=== PATIENT | female | born 1985 | race Hispanic/Latino ===

== ENCOUNTER 2018-06-13 23:43 | Emergency (ER) | payer OTHER ==
[~2018-06-13] VITALS: Ht 157.5 cm; Wt 57.2 kg
[~2018-06-13 23:43] MED LIST: JUNEL FE 1/20 21 TAB PO; TERBINAFINE HY250 MG PO
[2018-06-13 23:45] VITALS: BP 141/87
--- NOTE | 2018-06-13 23:51 | ED DYSPNEA/ASTHMA COMPLAINT ---
History of Present Illness General Chief Complaint: Wheezing/Asthma Stated Complaint: WHEEZING Source: patient Exam Limitations: no limitations Vital Signs & Intake/Output Vital Signs & Intake/Output Vital Signs Date Time Temp Pulse Resp B/P B/P Pulse O2 O2 Flow FiO2 Mean Ox Delivery Rate 06/14 0012 99 06/13 2345 98.8 80 18 141/87 97 Room Air ED Intake and Output 06/14 0000 06/13 1200 Intake Total Output Total Balance Patient 126 lb Weight Weight Reported by Patient Measurement Method Allergies Coded Allergies: No Known Allergies (06/13/18) Reconcile Medications Albuterol Sulfate (Ventolin Hfa) 90 MCG HFA.AER.AD 2 PUF INH Q4-6 PRN PRN wheeze NORETHINDRONE-E.ESTRADIOL-IRON (Junel Fe 1 MG-20 Mcg Tablet) 1 TAB TAB 1 TAB PO DAILY CONTROL (Reported) Prednisolone 15 MG/5 ML SOLUTION 10 ML PO QDAY BRONCHOSPASM Terbinafine Hydrochloride 250 MG TAB 1 TAB PO DAILY TOE FUNGUS (Reported) Triage Nurses Notes Reviewed? yes Onset: Abrupt Duration: hour(s): Timing: recent history Severity: mild Activities at Onset: sleep Prior Episodes/Possible Cause: no prior episodes Associated Symptoms: wheezing HPI: 32 yo woman presents with 1-2 hours of acute shortness of breath and wheezing. She notes, "I was sleeping beneath the air conditioner... it was really cold... then I woke up and just felt so short of breath... was wheezing." She notes no phlegm, chills, chest pain, dizziness, leg swelling. She is otherwise well. Past History Travel History Traveled to [place] past 21 day No Medical History Any Pertinent Medical History? see below for history Neurological: NONE EENT: NONE Cardiovascular: NONE Respiratory: NONE Gastrointestinal: NONE Hepatic: NONE Renal: NONE Musculoskeletal: NAIL FUNGUS Psychiatric: NONE Endocrine: NONE Blood Disorders: NONE Cancer(s): NONE DIGITAL MEDIA MANAGER/Reproductive: NONE Surgical History Surgical History: non-contributory Psychosocial History What is your primary language Malay Family History Hx Contributory? No Review of Systems Review of Systems Constitutional: Reports: no symptoms. EENTM: Reports: no symptoms. Respiratory: Reports: no symptoms. Cardiovascular: Reports: no symptoms. GI: Reports: no symptoms. Genitourinary: Reports: no symptoms. Musculoskeletal: Reports: no symptoms. Skin: Reports: no symptoms. Neurological/Psychological: Reports: no symptoms. Hematologic/Endocrine: Reports: no symptoms. Immunologic/Allergic: Reports: no symptoms. All Other Systems: Reviewed and Negative Physical Exam Physical Exam Respiratory: see below Comments: Physical Exam Physical Exam General Appearance: well developed/nourished, no apparent distress Head: atraumatic, normal appearance Eyes: Bilateral: normal appearance. Ears, Nose, Throat: normal pharynx, normal ENT inspection Neck: normal inspection, supple, full range of motion Respiratory: minimal faint wheeze, chest non-tender, no respiratory distress, lungs clear Cardiovascular: regular rate/rhythm Gastrointestinal: normal bowel sounds, soft, non-tender, no organomegaly Back: normal inspection, normal range of motion Extremities: normal inspection, normal capillary refill, normal range of motion, no edema Neurologic/Psych: no motor/sensory deficits, awake, alert, oriented x 3 Skin: intact, normal color, warm/dry Core Measures ACS in differential dx? No CVA/TIA Diagnosis No Sepsis Present: No Sepsis Focused Exam Completed? No Progress Differential Diagnosis: asthma, bronchitis, costochondritis Plan of Care: pt given andrezo neb. Initial ED EKG: none Departure Departure Disposition: HOME OR SELF CARE Condition: Stable Clinical Impression Primary Impression: Bronchospasm Referrals: Rahel Keith MD Departure Forms: Customer Survey General Discharge Information Prescriptions: Current Visit Scripts Albuterol Sulfate (Ventolin Hfa) 2 PUF INH Q4-6 PRN PRN wheeze #1 INHAL Ref 1 Prednisolone 10 ML PO QDAY #50 ML Comments 06/14/18, 0:41... Pt feels better after inhaler... benign exam.. Critical Care Note Critical Care Note Critical Care Time: non-applicable
[2018-06-14] MEDS ORDERED: VENTOLIN HFA18 GM INH (00:06)
[2018-06-14] MEDS ORDERED: PREDNISOLO15 MG/5 M4 PO (00:41)
== END 2018-06-14 00:46 ==
LOC: ERH 23:43
DX: J98.01 Acute bronchospasm (principal)
CPT/HCPCS: 1263; 1395